=== PATIENT | male | born 1955 | race Caucasian/White ===

== ENCOUNTER 2021-09-04 12:05 | Emergency (ER) | payer BC ==
[~2021-09-04 12:05] MED LIST: CIPRO500 MG PO; DOXAZOSIN MESYLA8 MG PO; FENOFIBRATE145 MG PO; FLAGYL500 MG PO; GLIPIZIDE5 MG PO; GLUCOPHAGE 500500 MG PO; LISINOPRIL10 MG PO; MYRBETRIQ50 MG PO; PANTOPRAZOLE SO40 MG PO; TOLTERODINE TART4 MG PO
[2021-09-04 12:36] LABS: HEMOGLOBIN 14.3 gm/dl (14.0-17.5); RED BLOOD COUNT 4.68 M/UL (4.20-5.50)
[2021-09-04 13:06] LABS: BUN/CREATININE RATIO 12 (0-10)
[2021-09-04] MEDS ORDERED: ONDANSETRON ODT4 MG SL ×2 (15:42→15:43)
== END 2021-09-04 15:57 | disposition left against medical advice (07) ==
LOC: ER1 12:05
PROVIDERS: Physician Assistant
DX: K56.609 Unspecified intestinal obstruction, unspecified as to partial versus complete obstruction (principal); I10 Essential (primary) hypertension; E11.9 Type 2 diabetes mellitus without complications; E78.5 Hyperlipidemia, unspecified; Z90.49 Acquired absence of other specified parts of digestive tract
CPT/HCPCS: 80053; 81001; 83690; 85025; 99283; Q9967